=== PATIENT | male | born 1980 | race Two or more races ===

== ENCOUNTER 2019-10-31 12:07 | Emergency (ER) | payer OTHER ==
[~2019-10-31] VITALS: Ht 170.2 cm; Wt 107.5 kg
[2019-10-31] MEDS ORDERED: SODIUM CHLORIDE FLUSH 10ML SYR IVF ONE (13:00)
[2019-10-31] MEDS ORDERED: LABETALOL 5MG/ML, 20ML IVPush ONE (13:00)
[2019-10-31] MEDS ORDERED: LABETALOL 5MG/ML, 20ML ONE (13:19)
--- NOTE | 2019-10-31 13:38 | NUR ---
PT TO ED WTIH GARCIA AND DIZZINESS. PT STATES HX OF HTN BUT RECENTLY RANOUT OF MEDICATIONS. PT CONNECTE TO [facility]. HTN, ALL OTHER VSS ON RA. REJI BARRETT, TO BS FOR ASSESSMENT. ORDERS RECEIVED. IV ESTABLISHED, LABS DRAWN AND PT MEDICATED PER JAN. UA SAMPLE COLELCTED AND SENT TO LAB. AWAITING RESULTS.
[2019-10-31 13:50] LABS: BASOPHILS # (AUTO) 0.02 x10^3/uL (0-0.1); BASOPHILS % (AUTO) 0 % (0-1); EOSINOPHILS # (AUTO) 0.15 x10^3/uL (0-0.4); EOSINOPHILS % (AUTO) 2 % (1-7); LYMPHOCYTES # (AUTO) 1.11 x10^3/uL (1-3.4); LYMPHOCYTES % (AUTO) 16 % (22-44); MD NO; MEAN CORPUSCULAR HEMOGLOBIN 30.7 pg (27.5-34.5); MEAN CORPUSCULAR VOLUME 92.9 fL (81-97); MEAN PLATELET VOLUME 8.4 fL (7.4-10.4); MONOCYTES % (AUTO) 9 % (2-9); NEUTROPHILS # (AUTO) 4.96 x10^3/uL (1.8-6.8); NEUTROPHILS % (AUTO) 72 % (42-75); PLATELET COUNT 282 x10^3/uL (130-400); RED BLOOD COUNT 5.05 x10^6/uL (4.38-5.82)
[2019-10-31 14:00] LABS: MICROSCOPIC AUTO
[2019-10-31 14:00] LABS: ALANINE AMINOTRANSFERASE 55 U/L (12-78); ALBUMIN 3.6 g/dL (3.4-5.0); ANION GAP 6 mmol/L (5-15); CALCIUM 8.5 mg/dL (8.5-10.1); CHLORIDE 113 mmol/L (98-107); CREATININE 1.09 mg/dL (0.7-1.3)
[2019-10-31 14:01] LABS: CULTURE INDICATED? NO
[2019-10-31 14:02] LABS: ALKALINE PHOSPHATASE 65 U/L (45-117); BILIRUBIN,TOTAL 0.5 mg/dL (0.2-1.0); TOTAL PROTEIN 7.2 g/dL (6.4-8.2)
--- NOTE | 2019-10-31 14:31 | NUR ---
PT RESTING IN ROOM. HTN, VSS. PT REPORTS DECREASE IN HEAD PAIN AFTER MEDICATION ADMINISTRATION. NO NEEDS EXPRESSED. AWAITING RESUTLS.
[2019-10-31] MEDS ORDERED: AMLODIPINE 5 MG TABLET PO ONE (15:00)
[2019-10-31] MEDS ORDERED: AMLODIPINE 5 MG TABLET ONE (15:12)
[2019-10-31 15:29] VITALS: BP 161/105
--- NOTE | 2019-10-31 15:33 | NUR ---
pt resting in room wtih family at bs. htn, vss. Dr. Herrera to bs to update on poc and results. new med orders received and meds administered. no needs expressed. call light within reach. awaiting further orders.
--- NOTE | 2019-10-31 15:57 | NUR ---
all results back at this time. chart up for recheck.
== END 2019-10-31 16:33 | disposition home or self-care (01) ==
LOC: ED 14:11
DX: I10 Essential (primary) hypertension (principal); R51 Headache
CPT/HCPCS: 36415; 80053; 81001; 85025; 93005; 96374; 99284